=== PATIENT | female | born 1965 | race Caucasian/White ===

== ENCOUNTER 2022-06-08 17:23 | Emergency (ER) | payer BC, SELFPAY ==
[2022-06-08 17:25] VITALS: BP 168/100; PULSE 84; RESP 16; TEMP 36.2; O2SAT 97; BMI 24.8
[2022-06-08 17:28] VITALS: BP 168/100; PULSE 84; RESP 16; TEMP 36.2; O2SAT 97
[2022-06-08 17:55] VITALS: BP 160/96; PULSE 74; RESP 16; O2SAT 97
--- NOTE | 2022-06-08 19:00 | RAD_ITS ---
STUDY: X-RAY - CERVICAL SPINE REASON FOR EXAM: Female, 56 years old. Injury/Pain TECHNIQUE: 3 view(s) of the cervical spine were obtained. COMPARISON: None FINDINGS: Normal anterior atlantoaxial articulation. Normal odontoid process. Normal cervical lordosis. Normal vertebral bodies and endplates. C5-6 disc space narrowing and mild posterior spurring. Disc spaces are otherwise well-maintained. The soft tissue structures are unremarkable. RAD/Cerv Spine 2 or 3 Views IMPRESSION: No acute findings. Electronically Signed: Sujata Euceda MD at 19:56 EDT Reading Location ID and State: [id number] / Tel , Service support ,
[2022-06-08] MEDS: HYDROcodone Bitartrate/Apap 5/325 Tablet PO (19:02)
[2022-06-08] MEDS: Naproxen 500 MG Tablet PO (19:02)
[2022-06-08] MEDS: predniSONE 20 MG Tablet 60 MG PO (19:03)
--- NOTE | 2022-06-08 20:42 | EDS_ITS ---
HPI History of Present Illness Chief Complaint: Other, Pain/Inj Informant: patient Onset/Context/Timing Onset: Yesterday Context: Gradual Onset Timing: Continuous Quality: Aching Location: Right neck and shoulder Worsened by: Movement Relieved by: Nothing Narrative Narrative: Patient presents with right-sided neck and shoulder pain that began yesterday. Patient states it is gradually getting worse. Patient states it has been constant since last night. Patient states she has had intermittent pain in that area over the last week. Patient states it is worse with certain movements. Patient states nothing makes it better. Patient does admit to some tingling over the right upper arm but it stops at the elbow. Patient denies any weakness. Patient denies any trauma or injury. 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 [facility] Medical History HTN (hypertension) Smoldering myeloma Home Medications gabapentin 300 mg capsule 300 mg PO TID #30 caps 06/08/22 [Rx Last Taken Unknown] lisinopril 20 mg tablet 20 mg PO DAILY 06/08/22 [History Last Taken Unknown] naproxen 500 mg tablet 500 mg PO BID PRN #20 tabs 06/08/22 [Rx Last Taken Unknown] prednisone 20 mg tablet 60 mg PO DAILY #15 TABLETS 06/08/22 [Rx Last Taken Unknown] Allergy/AdvReac Type Severity Reaction Status Date / Time No Known Allergies Allergy Verified 06/08/22 17:27 Surgical History no surgical history no surgical history Social History Smoking Status: Current every day smoker tobacco type: cigarettes ROS ROS ED Constitutional Constitutional ED: Denies chills or fever(s) Eyes Eyes: Denies blurry vision or change in vision ENT ENT ED: Denies rhinorrhea or sore throat Cardiovascular Cardiovascular: Denies chest pain or palpitations Respiratory/Chest Respiratory/Chest: Denies cough or dyspnea Gastrointestinal Gastrointestinal: Denies nausea or vomiting Genitourinary Genitourinary ED: Denies dysuria or hematuria Musculoskeletal Musculoskeletal: Reports neck pain; Denies back pain Integumentary Denies abscess or rash Neurologic Neurologic: Reports paresthesias RUE; Denies headache(s) or weakness Allergic/Immunologic Allergic/Immunologic ED: Denies mouth swelling or urticaria EXAM Physical Exam Const Vital Signs: 06/08/22 17:25 06/08/22 17:28 06/08/22 17:53 Temperature 97.1 F L 97.1 F L Temperature Source Temporal Temporal Pulse Rate 84 84 Respiratory Rate 16 16 Respiratory Effort Normal Non-Labored Respiratory Pattern Normal Blood Pressure 168/100 H 168/100 H Blood Pressure Mean 122 122 Pulse Ox 97 97 Oxygen Delivery Method Room Air Room Air 06/08/22 17:55 Temperature Temperature Source Pulse Rate 74 Respiratory Rate 16 Respiratory Effort Respiratory Pattern Blood Pressure 160/96 H Blood Pressure Mean 117 Pulse Ox 97 Oxygen Delivery Method Room Air Positive well nourished and well developed General Appearance ED: well developed and NAD HEENT Reports moist mucous membranes Neck no lymphadenopathy and no JVD Back/Spine Back/Spine Narrative: There is tenderness over the right cervical paraspinal muscles. There is no midline tenderness. There is no bony crepitance or step-off. Strength is 5/5 bilaterally in the upper extremities. There are no sensory deficits noted. Radial pulses are equal bilaterally. Extremity Extremity Narrative: There is mild tenderness over the right trapezius muscle and right shoulder area. There is decreased range of motion of the right shoulder secondary to pain. There is no obvious deformity. Neuro oriented x3, CN's II-XII intact bilaterally and no sensory deficits noted Sensorium / Orientation: alert Skin no rashes or lesions noted MDM MDM MDM Narrative Medical decision making narrative: X-rays of the cervical spine were obtained. There are 3 views. On my interpretation, there is no acute fracture or spondylolisthesis. There are some degenerative changes at the C5-C6 level. Radiologist also interpreted the x- rays and agrees. Patient was advised of the arthritic changes on her x-ray. Patient was advised that this may be contributing to her cervical radicular pain. Patient was given prescriptions for Naprosyn, prednisone, and gabapentin. Patient was instructed to follow-up with her primary care physician in 5 to 7 days. Patient understood and was agreeable with the plan. All questions were answered. Radiography Diagnostic Testing: Clinical Impression(s) from Imaging Studies Cervical Spine X-Ray 06/08/22 19:00 IMPRESSION: No acute findings. Electronically Signed: Sujata Euceda MD at 19:56 EDT Reading Location ID and State: [place] / Tel , Service support , Discharge Plan Triage Chief Complaint: Other, Pain/Inj ED Provider: Sanchez Schmid Dx/Rx/DC Orders Prescriptions: New prednisone 20 mg tablet 60 mg PO DAILY Qty: 15 0RF naproxen 500 mg tablet 500 mg PO BID PRN Qty: 20 0RF gabapentin 300 mg capsule 300 mg PO TID Qty: 30 0RF No Action lisinopril 20 mg Tablet 20 mg PO DAILY Stand Alone Forms: Work Status Form Primary Care Provider: Gabby Byrne NP Referrals: Gabby Byrne NP, [employer] ESTATE CLOSING COORDINATOR-C [Primary Care Provider] - 5-7 Days Disposition Disposition: Home, Self Care
[2022-06-08 20:55] VITALS: BP 141/82; PULSE 62; RESP 16; O2SAT 96
== END 2022-06-08 21:00 | disposition home or self-care (01) ==
PROVIDERS: Emergency Provider Emergency Medicine; PCP Nurse Practitioner Family; Visit Provider Emergency Medicine
DX: M54.2 Cervicalgia (principal); I10 Essential (primary) hypertension; F17.210 Nicotine dependence, cigarettes, uncomplicated; Z79.899 Other long term (current) drug therapy
CPT/HCPCS: 72040; 99283

== ENCOUNTER 2023-05-14 01:13 | Emergency (ER) | payer BC, SELFPAY ==
[2023-05-14 01:14] VITALS: BP 148/82; PULSE 74; RESP 17; TEMP 36.2; O2SAT 98; BMI 29.3
--- NOTE | 2023-05-14 01:21 | RAD_ITS ---
EXAM: XR LUMBOSACRAL SPINE, 2 OR 3 VIEWS CLINICAL INDICATION: sciatica RLE, hx multiple myeloma TECHNIQUE: Frontal and lateral views of the lumbar spine and sacrum. COMPARISON: No relevant prior studies available. FINDINGS: VERTEBRAE: Unremarkable. No spondylolisthesis. Preservation of the normal lumbar lordosis. No significant facet arthropathy. No acute or healing fracture or malalignment. No suspicious lytic or sclerotic lesions of bone. DISC SPACES: Mild degenerative changes involving the spine and pelvis/hips. GASTROINTESTINAL TRACT: Stool and gas throughout the colon. Included bowel gas pattern is non-obstructive. RAD/Lumbar Spine 2 or 3 Views IMPRESSION: No suspicious lytic lesions of bone. No findings to explain the clinical presentation. Electronically Signed: Leif Pradhan MD at 2:23 EDT ,
--- NOTE | 2023-05-14 01:22 | ED.VIS.BACK ---
HPI History of Present Illness Chief Complaint: Lower Extremity Injury Informant: patient Onset/Context/Timing Onset: Today Context: Gradual Onset Timing: Continuous Quality: Aching Location: Lumbar and Right Leg Current Severity: Severe Maximum Severity: Severe Worsened by: improves with Nothing Relieved by: Nothing Associated Symptoms Associated Symptoms: Radiation to Right Leg; Negative for Numbness, Tingling, Radiation to Left Leg, Fever, Abdominal Pain, Dysuria, Unable to Ambulate, Unable to Transfer, Urinary Retention, Urinary Incontinence, Constipation or Fecal Incontinence Narrative Narrative: Patient gradual onset of pain in her right low back radiating just below her right knee earlier today became worse tonight. Cannot find a comfortable position. No bowel or bladder dysfunction no saddle anesthesia no numbness and tingling in the right lower extremity, no symptoms in the left lower extremity. No weakness in the right leg. States she has a history of multiple myeloma currently being treated with chemotherapy. She states she has not had back pain prior to treatment and did not have anything show up on imaging/testing in her spine that she knows of. [facility] Medical History HTN (hypertension) Smoldering myeloma Home Medications lisinopril 20 mg tablet 40 mg PO DAILY 06/08/22 [History Last Taken Unknown] acyclovir 400 mg tablet 400 mg PO BID 05/14/23 [History Last Taken Unknown] atorvastatin 20 mg tablet 20 mg PO DAILY 05/14/23 [History Last Taken Unknown] citalopram 40 mg tablet 40 mg PO DAILY 05/14/23 [History Last Taken Unknown] dexamethasone 4 mg tablet 4 mg PO DAILY 05/14/23 [History Last Taken Unknown] lenalidomide 25 mg capsule (Revlimid) 25 mg PO DAILY 05/14/23 [History Last Taken Unknown] oxycodone-acetaminophen 5 mg-325 mg tablet 1 tab PO Q6H PRN PRN Pain 3 days #12 TABLETS 05/14/23 [Rx Last Taken Unknown] tizanidine 2 mg tablet 2 mg PO QHS 05/14/23 [History Last Taken Unknown] Allergy/AdvReac Type Severity Reaction Status Date / Time No Known Allergies Allergy Verified 06/08/22 17:27 Social History Smoking Status: Current every day smoker tobacco type: cigarettes ROS ROS ED Constitutional Constitutional ED: Denies chills or fever(s) Gastrointestinal Gastrointestinal: Denies abdominal pain, constipation, fecal incontinence, nausea or vomiting Genitourinary Genitourinary ED: Reports other Details: no urinary retention ; Denies abdominal discomfort or urinary incontinence Musculoskeletal Musculoskeletal: Reports as per HPI and back pain; Denies neck pain Integumentary Denies rash or wounds Neurologic Neurologic: Denies headache(s), paresthesias or weakness EXAM Physical Exam Const Vital Signs: 05/14/23 01:14 Temperature 97.2 F L Temperature Source Temporal Pulse Rate 74 Respiratory Rate 17 Blood Pressure 148/82 H Blood Pressure Mean 104 Pulse Ox 98 Oxygen Delivery Method Room Air Positive well nourished and well developed General Appearance ED: well developed and NAD HEENT Negative for trauma or tenderness Eyes PERRL and EOMs intact bilaterally Neck full ROM and supple GI normal to inspection, nondistended, normoactive bowel sounds, soft to palpation and non-tender Back/Spine normal to inspection Back/Spine Narrative: Pain in right buttock, tender is at sciatic notch right buttock, less tender at the SI joint. No tenderness in the spine. Normal inspection no rash. Negative straight leg raises while sitting bilaterally, do not reproduce radicular symptoms but ipsilateral straight leg raise increases right low back pain/buttock pain. Lumbar Spine / Lower Back: paraspinal muscle tenderness and straight leg raise negative bilaterally; Negative for ROM limited or lumbar spinal tenderness Extremity normal to inspection, full ROM and no pedal edema Neuro oriented x3 and no sensory deficits noted Sensorium / Orientation: alert Motor Exam: strength 5/5 throughout and clonus absent Deep Tendon Reflexes: Rt Patellar (L4): 2+, Lt Patellar (L4): 2+, Rt Ankle (S1): 2+ and Lt Ankle (S1): 2+ Deep Tendon Reflexes Back: Rt Patellar (L4): 2+, Lt Patellar (L4): 2+, Rt Ankle (S1): 2+ and Lt Ankle (S1): 2+ Plantar Reflex: Downgoing: bilateral Psych mental status grossly normal and thought process normal Skin no rashes or lesions noted and no wounds MDM MDM MDM Narrative Medical decision making narrative: Given her history of multiple myeloma and being on chronic oral steroids, I obtained three-view x-ray series of the lumbar spine, screening for compression fractures and lytic lesions. I see none of the above, on my interpretation negative basically for anything acute. Pain was treated with morphine which did help some, I think now the differential mainly involves sciatica which she is testing negative for objectively, and also possibly sacroiliitis. We will avoid NSAIDs since she is already on steroids, and will prescribe her pain medication and we discussed methods that she can use at home to see if she can get it improved before she follows up with her doctor. She does not have any neurologic compromise here she is ambulatory, and I she does not have any type of spinal cord syndrome at this time. Discharge Plan Triage Chief Complaint: Lower Extremity Injury ED Provider: Jasen Titus Dx/Rx/DC Orders Clinical Impression: Acute right-sided low back pain Instructions: ED Sacroiliitis, ED Sciatica Prescriptions: New oxycodone-acetaminophen [oxycodone-acetaminophen] 5-325 mg tablet 1 tab PO Q6H PRN PRN (Reason: Pain) 3 Days Qty: 12 0RF No Action lisinopril 20 mg Tablet 40 mg PO DAILY dexamethasone 4 mg tablet 4 mg PO DAILY Patient Comments: Take 10 tablets by mouth one time only for 1 dose. on day 21 of each cycle of therapy. tizanidine 2 mg tablet 2 mg PO QHS Patient Comments: Take 1 tablet by mouth at bedtime as needed. lenalidomide [Revlimid] 25 mg capsule 25 mg PO DAILY Rx Instructions: swallow whole with glass of water; do not open, crush, chew , break, or dissolve acyclovir 400 mg tablet 400 mg PO BID Patient Comments: Take 1 tablet by mouth twice daily. citalopram 40 mg tablet 40 mg PO DAILY Patient Comments: Take 1 tablet by mouth once daily. atorvastatin 20 mg tablet 20 mg PO DAILY Patient Comments: Take 1 tablet by mouth once daily. Primary Care Provider: Gabby Byrne NP Referrals: Gabby Byrne NP, [employer]AT[employer] TELLER MACHINE SERVICER-C [Primary Care Provider] - 3-5 Days if not improving Disposition Disposition: Home, Self Care
[2023-05-14] MEDS: Ondansetron ODT 4 MG Tablet 8 MG PO (01:26)
[2023-05-14] MEDS: Morphine 4 MG/ML Syringe IM (01:27)
[2023-05-14] MEDS: oxyCODONE 5 MG Tablet PO (02:12)
== END 2023-05-14 02:14 | disposition home or self-care (01) ==
PROVIDERS: Emergency Provider Emergency Medicine; PCP Nurse Practitioner Family; Visit Provider Emergency Medicine
DX: M54.50 Low back pain, unspecified (principal); I10 Essential (primary) hypertension; F17.210 Nicotine dependence, cigarettes, uncomplicated; Z79.899 Other long term (current) drug therapy
CPT/HCPCS: 72100; 96372; 99283

== ENCOUNTER → 2023-11-16 | Outpatient (CLI) | payer BC, SELFPAY | END | disposition home or self-care (01) | LOC: LABSPEC 12:17 | PROVIDERS: PCP Nurse Practitioner Family; Referring Provider Internal Medicine Hematology & Oncology; Visit Provider Internal Medicine Hematology & Oncology | DX: C90.00 Multiple myeloma not having achieved remission (principal) | CPT/HCPCS: 86850; 86900; 86901 ==